=== PATIENT | male | born 1970 | race Caucasian/White ===

== ENCOUNTER 2018-04-14 09:33 | Inpatient (IN) | payer OTHER ==
--- NOTE | 2018-04-14 10:01 | ERPHSYRPT ---
- History of Present Illness Time Seen by Provider: 04/14/18 09:45 Source: patient Exam Limitations: no limitations Physician History: 48 y/o male with no past medical history comes to the ER with complaints of right lower extremity pain, swelling, warmth and redness that started last night. Pt describes the pain as aching, currently 0/10, 10/10 with movement, with radiation up thigh and pt has not taken any pain meds. Pt also admits to mild dyspnea on exertion. Pt arrives tachycardic in the low 100's and fever of 101. Pt has a strong family history of multiple members having DVTs. Pt denies any chest pain, palpitations, dizziness, abdominal pain, nausea or vomiting. Method of Injury: unknown Occurred: yesterday Quality: intermittent Severity of Pain-Max: severe Severity of Pain-Current: none Lower Extremities Pain: leg: right, knee: right, thigh: right Modifying Factors: Improves With: nothing Associated Symptoms: none Allergies/Adverse Reactions: No Known Drug Allergies Allergy (Unverified 04/14/18 10:05) - Review of Systems Constitutional: No Fever, No Chills Eyes: No Symptoms Ears, Nose, & Throat: No Symptoms Respiratory: Dyspnea on Exertion (HERNÁNDEZ), No Cough, No Dyspnea Cardiac: No Chest Pain, No Edema, No Syncope Abdominal/Gastrointestinal: No Abdominal Pain, No Nausea, No Vomiting, No Diarrhea Genitourinary Symptoms: No Dysuria Musculoskeletal: Myalgias, No Back Pain, No Neck Pain Skin: Cellulitis, No Rash Neurological: No Dizziness, No Focal Weakness, No Sensory Changes Psychological: No Symptoms Endocrine: No Symptoms All Other Systems: Reviewed and Negative - Nursing Vital Signs Nursing Vital Signs: Initial Vital Signs Temperature 100.1 F 04/14/18 09:50 Pulse Rate 70 04/14/18 09:50 Respiratory Rate 20 04/14/18 09:50 Blood Pressure 124/48 04/14/18 09:50 O2 Sat by Pulse Oximetry 99 04/14/18 09:50 Pain Scale Pain Intensity [Right Anterior 8 /Posterior Thigh] Pain Intensity 0 - Physical Exam General Appearance: mild distress, alert Eyes, Ears, Nose, Throat Exam: moist mucous membranes Neck Exam: non-tender, supple Cardiovascular/Respiratory Exam: chest non-tender, normal breath sounds, regular rate/rhythm, no respiratory distress, tachycardia Gastrointestinal/Abdominal Exam: non-tender, guarding Back Exam: normal inspection, No vertebral tenderness Hips Exam: bilateral: non-tender, normal inspection, normal range of motion, no evidence of injury Legs Exam: right leg: limited range of motion, pain, soft tissue tenderness, swelling Knees Exam: right knee: pain, soft tissue tenderness, swelling Ankle Exam: bilateral ankle: non-tender, normal inspection, normal range of motion, no evidence of injury Foot Exam: bilateral foot: non-tender, normal inspection, normal range of motion , no evidence of injury Neuro/Tendon Exam: normal sensation, normal motor functions Mental Status Exam: alert, oriented x 3, cooperative Skin Exam: normal color, warm, dry - Course Nursing assessment & vital signs reviewed: Yes Ordered Tests: Active Orders 24 hr Category Date Time Status Scoop Driver STAT Care 04/14/18 10:02 Active EKG-ER Only STAT Care 04/14/18 11:04 Active IV Insertion STAT Care 04/14/18 10:02 Active Oxygen-ED Only NASAL CANNULA 2 lpm Care 04/14/18 11:34 Active CHEST 1 VIEW (PORTABLE) Stat Exams 04/14/18 10:28 Taken VENOUS UNILAT/LIMITED EXTREMIT [US] Stat Exams 04/14/18 11:36 Taken BLOOD CULTURE Stat Lab 04/14/18 10:15 Received CBC W DIFF Stat Lab 04/14/18 10:00 Results CMP Stat Lab 04/14/18 10:00 Completed Lactic Acid Stat Lab 04/14/18 10:02 Results Manual Differential NC Stat Lab 04/14/18 10:00 Results PT INR [PROTIME WITH INR] Stat Lab 04/14/18 10:00 Completed PTT Stat Lab 04/14/18 10:00 Completed Pathologist Review Stat Lab 04/14/18 10:00 Results TROPONIN Q3H Lab 04/14/18 10:00 Completed TROPONIN Q3H Lab 04/14/18 14:15 Ordered TROPONIN Q3H Lab 04/14/18 17:15 Ordered TROPONIN Q3H Lab 04/14/18 20:15 Ordered TROPONIN Q3H Lab 04/14/18 23:15 Ordered UA W/RFX UR CULTURE Stat Lab 04/14/18 10:02 Uncollected Medication Summary Generic Name Dose Route Start Last Admin Trade Name Freq PRN Reason Stop Dose Admin Sodium Chloride 1,000 mls @ 999 mls/hr 04/14/18 11:15 04/14/18 11:27 Sodium Chloride 0.9% 1000 Ml IV 04/14/18 12:15 999 mls/hr .Q1H1M STA Administration Discontinued Medications Generic Name Dose Route Start Last Admin Trade Name Sebas PRN Reason Stop Dose Admin Acetaminophen 975 mg 04/14/18 10:02 04/14/18 10:14 Tylenol 325 Mg PO 04/14/18 10:03 975 mg STAT STA Administration Acetaminophen Confirm 04/14/18 10:08 Tylenol 325 Mg Administered 04/14/18 10:09 Dose 975 mg .ROUTE .STK-MED ONE Sodium Chloride 1,000 mls @ 999 mls/hr 04/14/18 10:02 04/14/18 11:25 Sodium Chloride 0.9% 1000 Ml IV 04/14/18 11:02 Infused .Q1H1M STA Infusion Vancomycin HCl 1 gm in 250 mls @ 167 mls/hr 04/14/18 10:08 04/14/18 10:30 Vancomycin 1gm/ Ns 250ml IV 04/14/18 11:37 167 mls/hr STAT ONE Administration Sodium Chloride Confirm 04/14/18 10:09 Sodium Chloride 0.9% 1000 Ml Administered 04/14/18 10:10 Dose 1,000 mls @ ud .ROUTE .STK-MED ONE Vancomycin HCl Confirm 04/14/18 10:26 Vancomycin 1gm/ Ns 250ml Administered 04/14/18 10:27 Dose 250 mls @ ud IV .STK-MED ONE Sodium Chloride Confirm 04/14/18 11:19 Sodium Chloride 0.9% 1000 Ml Administered 04/14/18 11:20 Dose 1,000 mls @ ud .ROUTE .STK-MED ONE Morphine Sulfate 4 mg 04/14/18 10:04 04/14/18 10:13 Morphine Sulfate 4 Mg Inj IV 04/14/18 10:05 4 mg STAT ONE Administration Morphine Sulfate Confirm 04/14/18 10:08 Morphine Sulfate 4 Mg Inj Administered 04/14/18 10:09 Dose 4 mg .ROUTE .STK-MED ONE Ondansetron HCl 4 mg 04/14/18 10:02 04/14/18 10:15 Zofran 4 Mg/2 Ml Vial IV 04/14/18 10:03 4 mg STAT STA Administration Ondansetron HCl Confirm 04/14/18 10:08 Zofran 4 Mg/2 Ml Vial Administered 04/14/18 10:09 Dose 4 mg .ROUTE .STK-MED ONE Lab/Rad Data: Laboratory Result Diagrams 04/14/18 10:00 04/14/18 10:00 Laboratory Results 04/14/18 04/14/18 04/14/18 Range/Units 10:02 10:00 10:00 WBC (4.0-10.5) K/mm3 RBC (4.1-5.6) M/mm3 Hgb (12.5-18.0) gm/dl Hct (42-50) % MCV (78-100) fl MCH (26-32) pg MCHC (32-36) g/dl RDW (11.5-14.0) % Plt Count (150-450) K/mm3 MPV (6-9.5) fl Absolute Granulocytes (1.4-6.9) Segmented Neutrophils (36.-66.) % Band Neutrophils (0.0-2.0) % Lymphocytes (Manual) (24-44) % Monocytes (Manual) (0.0-12.0) % Toxic Granulation Platelet Estimate (NORMAL) RBC Morphology Smear Path Review PT 14.3 H (8.83-12.87) SECONDS INR 1.23 (0.8-3.0) APTT 28.9 (24.1-36.1) SECONDS Sodium (137-145) mmol/L Potassium (3.5-5.1) mmol/L Chloride (98-107) mmol/L Carbon Dioxide (22-30) mmol/L Anion Gap (5-15) MEQ/L BUN (9-20) mg/dL Creatinine (0.66-1.25) mg/dL Estimated GFR ML/MIN Glucose (74-106) mg/dL Lactic Acid 3.0 H (0.4-2.0) Calcium (8.4-10.2) mg/dL Total Bilirubin (0.2-1.3) mg/dL AST (17-59) U/L ALT (0-50) U/L Alkaline Phosphatase (38-126) U/L Troponin I < 0.012 (0.000-0.034) ng/mL Serum Total Protein (6.3-8.2) g/dL Albumin (3.5-5.0) g/dL 04/14/18 04/14/18 Range/Units 10:00 10:00 WBC 27.2 H* (4.0-10.5) K/mm3 RBC 5.64 H (4.1-5.6) M/mm3 Hgb 15.6 (12.5-18.0) gm/dl Hct 48.4 (42-50) % MCV 85.8 (78-100) fl MCH 27.6 (26-32) pg MCHC 32.2 (32-36) g/dl RDW 14.6 H (11.5-14.0) % Plt Count 314 (150-450) K/mm3 MPV 9.6 H (6-9.5) fl Absolute Granulocytes 24.72 H (1.4-6.9) Segmented Neutrophils 89 H (36.-66.) % Band Neutrophils 4 H (0.0-2.0) % Lymphocytes (Manual) 4 L (24-44) % Monocytes (Manual) 3 (0.0-12.0) % Toxic Granulation 2+ Platelet Estimate NORMAL (NORMAL) RBC Morphology NORMAL Smear Path Review Pending PT (8.83-12.87) SECONDS INR (0.8-3.0) APTT (24.1-36.1) SECONDS Sodium 135 L (137-145) mmol/L Potassium 3.7 (3.5-5.1) mmol/L Chloride 100 (98-107) mmol/L Carbon Dioxide 27 (22-30) mmol/L Anion Gap 12.0 (5-15) MEQ/L BUN 14 (9-20) mg/dL Creatinine 1.01 (0.66-1.25) mg/dL Estimated GFR > 60.0 ML/MIN Glucose 140 H (74-106) mg/dL Lactic Acid (0.4-2.0) Calcium 8.5 (8.4-10.2) mg/dL Total Bilirubin 1.90 H (0.2-1.3) mg/dL AST 20 (17-59) U/L ALT 28 (0-50) U/L Alkaline Phosphatase 88 (38-126) U/L Troponin I (0.000-0.034) ng/mL Serum Total Protein 7.5 (6.3-8.2) g/dL Albumin 3.8 (3.5-5.0) g/dL - Progress Progress: improved Progress Note: 04/14/18 11:16 The patient has clinical features of a cellulitis and was started on vancomycin. Pt has a white count of 27,000. The doppler LE does not show a DVT. Pt has a lactic acid of 3.0 and will be given 2 liters of NS fluids. The CXR does not show any infiltrate and the UA is pending. Pt has been admitted to Dr Amezquita for cellulitis. 04/14/18 11:19 - Departure Time of Disposition: 12:01 Departure Disposition: In-patient Admission Clinical Impression: Cellulitis Qualifiers: Site of cellulitis: extremity Site of cellulitis of extremity: lower extremity Laterality: right Qualified Code(s): L03.115 - Cellulitis of right lower limb Condition: Fair Critical Care Time: Yes Critical Care Time(excluding separately billable procedures): 30-74 minutes Referrals: DOCTOR,NO FAMILY [Primary Care Provider] -
[2018-04-14] MEDS ORDERED: Zofran 4 MG/2 ML VIAL IV STA (10:02)
[2018-04-14] MEDS ORDERED: Sodium Chloride 0.9% 1000 ML 1,000 ML IV STA ×2 (10:02→11:15)
[2018-04-14] MEDS ORDERED: TYLENOL 325 MG PO STA (10:02)
[2018-04-14] MEDS ORDERED: MORPHINE SULFATE 4 MG INJ IV ONE (10:04)
[2018-04-14] MEDS ORDERED: Vancomycin 1GM/ Ns 250ML*** 1 GM/250 ML IVPB IV ONE (10:08)
[2018-04-14] MEDS ORDERED: MORPHINE SULFATE 4 MG INJ ONE (10:08)
[2018-04-14] MEDS ORDERED: Zofran 4 MG/2 ML VIAL ONE (10:08)
[2018-04-14] MEDS ORDERED: TYLENOL 325 MG ONE (10:08)
[2018-04-14] MEDS ORDERED: Sodium Chloride 0.9% 1000 ML 1,000 ML ONE ×2 (10:09→11:19)
[2018-04-14 10:11] LABS: Granulocyte Absolute (ANC) 24.72 (1.4-6.9); Hematocrit 48.4 % (42-50); Hemoglobin 15.6 gm/dl (12.5-18.0); Mean Cell Volume 85.8 fl (78-100); Mean Corpuscular Hgb Concent. 32.2 g/dl (32-36); Mean Platelet Volume 9.6 fl (6-9.5); Platelet Count 314 K/mm3 (150-450); Red Blood Count 5.64 M/mm3 (4.1-5.6); Red Cell Distribution Width 14.6 % (11.5-14.0)
[2018-04-14 10:17] LABS: Mean Corpuscular Hemoglobin 27.6 pg (26-32); White Blood Count 27.2 K/mm3 (4.0-10.5)
[2018-04-14] MEDS ORDERED: Vancomycin 1GM/ Ns 250ML*** 250 ML IV ONE (10:26)
[2018-04-14 10:29] LABS: ALBUMIN 3.8 g/dL (3.5-5.0); ALKALINE PHOSPHATASE 88 U/L (38-126); BLOOD UREA NITROGEN 14 mg/dL (9-20); CHLORIDE 100 mmol/L (98-107); Calcium 8.5 mg/dL (8.4-10.2); Carbon Dioxide 27 mmol/L (22-30); Creatinine 1 1.01 mg/dL (0.66-1.25); Glucose 140 mg/dL (74-106); Potassium 3.7 mmol/L (3.5-5.1); SGOT/AST 20 U/L (17-59); SGPT/ALT 28 U/L (0-50); SODIUM 135 mmol/L (137-145); Total Protein 7.5 g/dL (6.3-8.2)
[2018-04-14 10:54] LABS: INR 1.23 (0.8-3.0)
[2018-04-14 10:57] LABS: PTT 28.9 SECONDS (24.1-36.1)
[2018-04-14 11:56] LABS: BAND 4 % (0.0-2.0); Lymphocytes 4 % (24-44); Monocyte 3 % (0.0-12.0); Neutrophils 89 % (36.-66.); Platelet Estimate NORMAL (NORMAL); Total Cells Counted 100; Toxic Granulation 2+
[2018-04-14] MEDS: Sodium Chloride 0.9% 1000 ML 1,000 ML IV SCH (13:13)
[2018-04-14] MEDS ORDERED: VANCOCIN 1 GM VIAL*** 1.5 GM in Sodium Chloride 0.9% 500 ML 500 ML IV ONE (13:15)
[2018-04-14] MEDS: ENOXAPARIN SODIUM SQ SCH (16:15)
[2018-04-14 16:51] LABS: Appearance CLEAR (CLEAR); Bilirubin NEGATIVE (NEGATIVE); Blood NEGATIVE Ery/ul (0-5); Glucose NEGATIVE (NEGATIVE); Ketones NEGATIVE (NEGATIVE); Leukocyte Esterase NEGATIVE (NEGATIVE); Nitrite NEGATIVE (NEGATIVE); Protein,Urine Dip NEGATIVE (Negative); Urobilinogen NORMAL mg/dL (0-1)
[2018-04-14] MEDS: TYLENOL 325 MG PO PRN (16:54)
--- NOTE | 2018-04-14 20:44 | XRAY ---
Indication: Right leg pain and swelling. Two-dimensional sonogram and color Doppler imaging of the major venous vessels of the right leg was performed. Comparison: None No thrombus seen in the examined deep venous vessels of the right leg including greater saphenous vein. Veins demonstrate normal compressibility. Venous waveforms are normal with and without augmentation. Impression: Right leg negative for DVT. Comment: Preliminary report was given.
--- NOTE | 2018-04-14 20:46 | XRAY ---
Indication: Lower leg pain and swelling. Comparison: None Portable chest demonstrates normal heart, lungs, and bony thorax.
[2018-04-14] MEDS: VANCOCIN 1 GM VIAL*** 2 GM in Sodium Chloride 0.9% 500 ML 500 ML IV SCH (21:00)
[2018-04-15] MEDS: MORPHINE SULFATE 4 MG INJ IV PRN ×3 (03:26→20:08)
[2018-04-15 05:35] LABS: BASOPHIL % 0.2 % (0.0-0.4); Basophil (Absolute #) 0.03 (0-0.4); Eosinophil % 0.1 % (0.00-5.0); Eosinophil (Absolute #) 0.02 (0-0.5); Granulocyte Absolute (ANC) 15.66 (1.4-6.9); Granulocytes % 82.3 % (36.0-66.0); Hemoglobin 14.2 gm/dl (12.5-18.0); Lymphocyte (Absolute #) 2.01 (1.0-4.6); Lymphocytes % 10.6 % (24.0-44.0); Mean Cell Volume 88.2 fl (78-100); Mean Corpuscular Hemoglobin 27.8 pg (26-32); Mean Corpuscular Hgb Concent. 31.6 g/dl (32-36); Mean Platelet Volume 9.7 fl (6-9.5); Monocyte (Absolute #) 1.29 (0.0-1.3); Monocytes % 6.8 % (0.0-12.0); Platelet Count 252 K/mm3 (150-450)
[2018-04-15 05:51] LABS: ANION GAP 10.1 MEQ/L (5-15); BLOOD UREA NITROGEN 13 mg/dL (9-20); CHLORIDE 99 mmol/L (98-107); Carbon Dioxide 28 mmol/L (22-30); Creatinine 1 1.16 mg/dL (0.66-1.25); Glucose 144 mg/dL (74-106); Potassium 3.9 mmol/L (3.5-5.1); SODIUM 134 mmol/L (137-145)
[2018-04-15] MEDS: VANCOCIN 1 GM VIAL*** 2 GM in Sodium Chloride 0.9% 500 ML 500 ML IV SCH ×3 (06:16→22:16)
[2018-04-15] MEDS: Sodium Chloride 0.9% 1000 ML 1,000 ML IV SCH (06:19)
[2018-04-15] MEDS: ENOXAPARIN SODIUM SQ SCH (09:12)
[2018-04-15] MEDS: TYLENOL 325 MG PO PRN (09:20)
[2018-04-15] MEDS ORDERED: Vancomycin 1GM/ Ns 250ML*** 1 GM/250 ML IVPB IV SCH (10:00)
[2018-04-15] MEDS: Zofran 4 MG/2 ML VIAL IV PRN ×2 (11:38→20:07)
--- NOTE | 2018-04-15 13:10 | PCM.HP ---
History of Present Illness - Chief Complaint Chief Complaint: swelling and redness of leg History of Present Illness: 48 y/o male with no past medical history comes to the ER with complaints of right lower extremity pain, swelling, warmth and redness that started last night. Pt describes the pain as aching, currently 0/10, 10/10 with movement, with radiation up thigh and pt has not taken any pain meds. Pt also admits to mild dyspnea on exertion. Pt arrives tachycardic in the low 100's and fever of 101. Pt has a strong family history of multiple members having DVTs. Pt denies any chest pain, palpitations, dizziness, abdominal pain, nausea or vomiting. Method of Injury: unknown Occurred: yesterday Quality: intermittent Severity of Pain-Max: severe Severity of Pain-Current: none Lower Extremities Pain: leg: right, knee: right, thigh: right Modifying Factors: Improves With: nothing - Review of Systems Constitutional: No Fever, No Chills Eyes: No Symptoms Ears, Nose, & Throat: No Symptoms Respiratory: No Cough, No Short Of Breath Cardiac: No Chest Pain, No Edema, No Syncope Abdominal/Gastrointestinal: No Abdominal Pain, No Nausea, No Vomiting, No Diarrhea Genitourinary Symptoms: No Dysuria Musculoskeletal: No Back Pain, No Neck Pain Skin: Cellulitis, No Rash Neurological: No Dizziness, No Focal Weakness, No Sensory Changes Psychological: No Symptoms Endocrine: No Symptoms Hematologic/Lymphatic: No Symptoms Immunological/Allergic: No Symptoms Medications & Allergies Home Medications: Home Medication List No Reportable Medications [No Reported Medications] 04/14/18 [History Confirmed 04/14/18] Allergies/Adverse Reactions: Allergies Allergy/AdvReac Type Severity Reaction Status Date / Time No Known Drug Allergies Allergy Unverified 04/14/18 10:05 - Past Medical History Past Medical History: No - Past Surgical History Past Surgical History: Yes Musculskeletal Surgical Hx: Orthopedic Surgery Other Surgical History: BROKEN HAND - Social History Smoking Status: Never smoker Exposure to second hand smoke: No Alcohol: None Drug Use: none - Physical Exam Vital Signs: Vital Signs - 24 hr Temp Pulse Resp BP Pulse Ox 04/15/18 11:43 97 H 18 175/96 98 04/15/18 07:13 98.5 F 97 H 18 115/53 92 L 04/15/18 03:48 99.5 F 98 H 19 130/60 97 08/26/18 23:31 98.4 F 89 19 129/65 90 L 04/14/18 19:37 100.8 F 100 H 20 115/55 94 L 04/14/18 15:49 98.2 F 96 H 18 166/71 92 L General Appearance: no apparent distress, alert Neurologic Exam: alert, oriented x 3, cooperative, normal mood/affect, nml cerebellar function, nml station & gait, sensation nml, No motor deficits Eye Exam: PERRL/EOMI, eyes nml inspection Ears, Nose, Throat Exam: normal ENT inspection, TMs normal, pharynx normal, moist mucous membranes Neck Exam: normal inspection, non-tender, supple, full range of motion Respiratory Exam: normal breath sounds, lungs clear, No respiratory distress Cardiovascular Exam: regular rate/rhythm, normal heart sounds, normal peripheral pulses Gastrointestinal/Abdomen Exam: soft, normal bowel sounds, No tenderness, No mass Back Exam: normal inspection, normal range of motion, No CVA tenderness, No vertebral tenderness Extremity Exam: normal inspection, swelling Skin Exam: normal color, warm, dry, No rash Lymphatic Exam: No adenopathy Results - Labs Lab/Micro Results: Lab Results-Last 24 Hours 04/14/18 04/14/18 04/14/18 Range/Units 14:00 14:13 16:43 WBC (4.0-10.5) K/mm3 RBC (4.1-5.6) M/mm3 Hgb (12.5-18.0) gm/dl Hct (42-50) % MCV (78-100) fl MCH (26-32) pg MCHC (32-36) g/dl RDW (11.5-14.0) % Plt Count (150-450) K/mm3 MPV (6-9.5) fl Gran % (36.0-66.0) % Eos # (Auto) (0-0.5) Absolute Lymphs (auto) (1.0-4.6) Absolute Monos (auto) (0.0-1.3) Lymphocytes % (24.0-44.0) % Monocytes % (0.0-12.0) % Eosinophils % (0.00-5.0) % Basophils % (0.0-0.4) % Absolute Granulocytes (1.4-6.9) Basophils # (0-0.4) Sodium (137-145) mmol/L Potassium (3.5-5.1) mmol/L Chloride (98-107) mmol/L Carbon Dioxide (22-30) mmol/L Anion Gap (5-15) MEQ/L BUN (9-20) mg/dL Creatinine (0.66-1.25) mg/dL Estimated GFR ML/MIN Glucose (74-106) mg/dL Lactic Acid 1.5 (0.4-2.0) Calcium (8.4-10.2) mg/dL Troponin I < 0.012 (0.000-0.034) ng/mL Ur Collection Type VOID Urine Color DARK YELLOW (YELLOW) Urine Appearance CLEAR (CLEAR) Urine pH 5.0 (5-6) Ur Specific [place] 1.020 (1.005-1.025) Urine Protein NEGATIVE (Negative) Urine Ketones NEGATIVE (NEGATIVE) Urine Blood NEGATIVE (0-5) Guido/ul Urine Nitrite NEGATIVE (NEGATIVE) Urine Bilirubin NEGATIVE (NEGATIVE) Urine Urobilinogen NORMAL (0-1) mg/dL Ur Leukocyte Esterase NEGATIVE (NEGATIVE) Urine Culture Reflexed NO (NO) Urine Glucose NEGATIVE (NEGATIVE) mg/dL Specimen Received 04/14/18 1630 04/14/18 04/15/18 04/15/18 Range/Units 17:45 05:15 05:31 WBC 19.0 H (4.0-10.5) K/mm3 RBC 5.10 (4.1-5.6) M/mm3 Hgb 14.2 (12.5-18.0) gm/dl Hct 45.0 (42-50) % MCV 88.2 (78-100) fl MCH 27.8 (26-32) pg MCHC 31.6 L (32-36) g/dl RDW 15.0 H (11.5-14.0) % Plt Count 252 (150-450) K/mm3 MPV 9.7 H (6-9.5) fl Gran % 82.3 H (36.0-66.0) % Eos # (Auto) 0.02 (0-0.5) Absolute Lymphs (auto) 2.01 (1.0-4.6) Absolute Monos (auto) 1.29 (0.0-1.3) Lymphocytes % 10.6 L (24.0-44.0) % Monocytes % 6.8 (0.0-12.0) % Eosinophils % 0.1 (0.00-5.0) % Basophils % 0.2 (0.0-0.4) % Absolute Granulocytes 15.66 H (1.4-6.9) Basophils # 0.03 (0-0.4) Sodium (137-145) mmol/L Potassium (3.5-5.1) mmol/L Chloride (98-107) mmol/L Carbon Dioxide (22-30) mmol/L Anion Gap (5-15) MEQ/L BUN (9-20) mg/dL Creatinine (0.66-1.25) mg/dL Estimated GFR ML/MIN Glucose (74-106) mg/dL Lactic Acid 1.2 (0.4-2.0) Calcium (8.4-10.2) mg/dL Troponin I < 0.012 (0.000-0.034) ng/mL Ur Collection Type Urine Color (YELLOW) Urine Appearance (CLEAR) Urine pH (5-6) Ur Specific [place] (1.005-1.025) Urine Protein (Negative) Urine Ketones (NEGATIVE) Urine Blood (0-5) Guido/ul Urine Nitrite (NEGATIVE) Urine Bilirubin (NEGATIVE) Urine Urobilinogen (0-1) mg/dL Ur Leukocyte Esterase (NEGATIVE) Urine Culture Reflexed (NO) Urine Glucose (NEGATIVE) mg/dL Specimen Received 04/15/18 Range/Units 05:31 WBC (4.0-10.5) K/mm3 RBC (4.1-5.6) M/mm3 Hgb (12.5-18.0) gm/dl Hct (42-50) % MCV (78-100) fl MCH (26-32) pg MCHC (32-36) g/dl RDW (11.5-14.0) % Plt Count (150-450) K/mm3 MPV (6-9.5) fl Gran % (36.0-66.0) % Eos # (Auto) (0-0.5) Absolute Lymphs (auto) (1.0-4.6) Absolute Monos (auto) (0.0-1.3) Lymphocytes % (24.0-44.0) % Monocytes % (0.0-12.0) % Eosinophils % (0.00-5.0) % Basophils % (0.0-0.4) % Absolute Granulocytes (1.4-6.9) Basophils # (0-0.4) Sodium 134 L (137-145) mmol/L Potassium 3.9 (3.5-5.1) mmol/L Chloride 99 (98-107) mmol/L Carbon Dioxide 28 (22-30) mmol/L Anion Gap 10.1 (5-15) MEQ/L BUN 13 (9-20) mg/dL Creatinine 1.16 (0.66-1.25) mg/dL Estimated GFR > 60.0 ML/MIN Glucose 144 H (74-106) mg/dL Lactic Acid (0.4-2.0) Calcium 8.0 L (8.4-10.2) mg/dL Troponin I (0.000-0.034) ng/mL Ur Collection Type Urine Color (YELLOW) Urine Appearance (CLEAR) Urine pH (5-6) Ur Specific [place] (1.005-1.025) Urine Protein (Negative) Urine Ketones (NEGATIVE) Urine Blood (0-5) Guido/ul Urine Nitrite (NEGATIVE) Urine Bilirubin (NEGATIVE) Urine Urobilinogen (0-1) mg/dL Ur Leukocyte Esterase (NEGATIVE) Urine Culture Reflexed (NO) Urine Glucose (NEGATIVE) mg/dL Specimen Received - Radiology Impressions Radiology Exams & Impressions: Radiology Procedures Category Date Time Status CHEST 1 VIEW (PORTABLE) Stat Exams 04/14/18 10:28 Completed VENOUS UNILAT/LIMITED EXTREMIT [US] Stat Exams 04/14/18 11:36 Completed Assessment/Plan (1) Cellulitis Current Visit: Yes Status: Acute Onset Date: ~04/14/18 Qualifiers: Site of cellulitis: extremity Site of cellulitis of extremity: lower extremity Laterality: right Qualified Code(s): L03.115 - Cellulitis of right lower limb Code(s): L03.90 - CELLULITIS, UNSPECIFIED (2) Elevated WBC count Current Visit: Yes Status: Acute Onset Date: ~04/14/18 Code(s): D72.829 - ELEVATED WHITE BLOOD CELL COUNT, UNSPECIFIED (3) Fever Current Visit: Yes Status: Acute Onset Date: ~04/14/18 Qualifiers: Fever type: unspecified Qualified Code(s): R50.9 - Fever, unspecified Code(s): R50.9 - FEVER, UNSPECIFIED (4) Morbidly obese Current Visit: Yes Status: Acute Onset Date: ~04/14/18 Code(s): E66.01 - MORBID (SEVERE) OBESITY DUE TO EXCESS CALORIES
[2018-04-15] MEDS ORDERED: TROUGH DRUG LEVELS IJ ONE (13:30)
--- NOTE | 2018-04-15 14:33 | XRAY ---
Indication: Cellulitis. Two-dimensional sonogram and color Doppler imaging of the major arteries of the left and right leg performed. Comparison: None Examination of the right leg demonstrates patent common femoral, superficial femoral, popliteal, posterior tibial, and dorsal pedal arteries with monophasic arterial waveforms throughout. Lower leg demonstrates mild subcutaneous soft tissue edema. Examination of the left leg demonstrates widely patent common femoral, superficial femoral, popliteal, posterior tibial, and dorsal pedal arteries with multiphasic arterial waveforms throughout. Lower leg demonstrates moderate subcutaneous soft tissue edema. Left and right ankle brachial indices not performed due to severe cellulitis. Impression: 1. Left and right leg arterial color Doppler sonogram negative for critical stenosis/obstruction. 2. The right leg arterial waveforms are monophasic throughout suggesting inflow stenosis presumed at the level of the iliac arteries. CTA abdominal aorta with bilateral runoff may yield further information if clinically warranted. 3. Bilateral lower leg subcutaneous soft tissue edema, left greater than right presumed related to cellulitis.
[2018-04-16] MEDS: MORPHINE SULFATE 4 MG INJ IV PRN (01:27)
[2018-04-16] MEDS: Sodium Chloride 0.9% 1000 ML 1,000 ML IV SCH (04:42)
[2018-04-16] MEDS: TYLENOL 325 MG PO PRN ×2 (04:49→22:23)
[2018-04-16 05:43] LABS: Hematocrit 41.5 % (42-50); Mean Cell Volume 88.9 fl (78-100); Mean Corpuscular Hemoglobin 27.8 pg (26-32); Mean Corpuscular Hgb Concent. 31.3 g/dl (32-36); Mean Platelet Volume 9.4 fl (6-9.5); Platelet Count 215 K/mm3 (150-450); Red Blood Count 4.67 M/mm3 (4.1-5.6); Red Cell Distribution Width 14.5 % (11.5-14.0); White Blood Count 12.7 K/mm3 (4.0-10.5)
[2018-04-16 06:07] LABS: ALKALINE PHOSPHATASE 81 U/L (38-126); ANION GAP 7.5 MEQ/L (5-15); BLOOD UREA NITROGEN 10 mg/dL (9-20); CHLORIDE 98 mmol/L (98-107); Calcium 7.6 mg/dL (8.4-10.2); Carbon Dioxide 30 mmol/L (22-30); Creatinine 1 0.92 mg/dL (0.66-1.25); Glucose 158 mg/dL (74-106); Potassium 3.7 mmol/L (3.5-5.1); SGOT/AST 21 U/L (17-59); SGPT/ALT 24 U/L (0-50); SODIUM 132 mmol/L (137-145); Total Protein 6.2 g/dL (6.3-8.2)
[2018-04-16] MEDS: VANCOCIN 1 GM VIAL*** 2 GM in Sodium Chloride 0.9% 500 ML 500 ML IV SCH ×3 (06:31→22:23)
[2018-04-16] MEDS: Zestril 5 MG PO SCH (10:04)
[2018-04-16] MEDS: ENOXAPARIN SODIUM SQ SCH (10:05)
[2018-04-16] MEDS: Lasix 40 MG PO SCH (10:05)
[2018-04-16] MEDS: hydroDIURIL 25 MG PO SCH (10:05)
--- NOTE | 2018-04-16 11:52 | PCM.NOTE ---
Date and Time: 04/16/18 1151 Subjective Assessment: doing better - Review of Systems Constitutional: No Fever, No Chills Eyes: No Symptoms Ears, Nose, & Throat: No Symptoms Respiratory: No Cough, No Short Of Breath Cardiac: No Chest Pain, No Edema, No Syncope Abdominal/Gastrointestinal: No Abdominal Pain, No Nausea, No Vomiting, No Diarrhea Genitourinary Symptoms: No Dysuria Musculoskeletal: No Back Pain, No Neck Pain Skin: No Rash Neurological: No Dizziness, No Focal Weakness, No Sensory Changes Psychological: No Symptoms Endocrine: No Symptoms Hematologic/Lymphatic: No Symptoms Immunological/Allergic: No Symptoms Objective Exam General Appearance: no apparent distress, alert Neurologic Exam: alert, oriented x 3, cooperative, normal mood/affect, nml cerebellar function, sensation nml, No motor deficits Skin Exam: normal color, warm, dry Eye Exam: PERRL, EOMI, eyes nml inspection Ears, Nose, Throat Exam: normal ENT inspection, pharynx normal, moist mucous membranes Neck Exam: normal inspection, non-tender, supple, full range of motion Respiratory Exam: normal breath sounds, lungs clear, No respiratory distress Cardiovascular Exam: regular rate/rhythm, normal heart sounds Gastrointestinal/Abdomen Exam: soft, No tenderness, No mass Extremity Exam: normal inspection, normal range of motion, swelling, tenderness Back Exam: normal inspection, normal range of motion, No CVA tenderness, No vertebral tenderness Male Genitalia Exam: deferred Rectal Exam: deferred OBJECTIVE DATA Vital Signs: Vital Signs - 24 hr Temp Pulse Resp BP Pulse Ox 04/16/18 11:48 97.9 F 66 18 135/58 94 L 04/16/18 08:00 98.2 F 74 21 121/62 92 L 04/16/18 07:11 96 04/16/18 04:00 98.4 F 92 H 22 150/65 92 L 04/15/18 23:50 98.3 F 93 H 22 136/60 92 L 04/15/18 20:00 99.3 F 90 20 128/59 95 04/15/18 15:49 98.1 F 75 18 162/70 97 Oxygen-Last 24 hours O2 Percentage 4 Liters = 36% O2 Percentage 4 Liters = 36% Pain Assessment - Last Documented Pain Intensity [Right Anterior 8 /Posterior Thigh] Pain Intensity 5 Pain Scale Used FLACC Intake and Output: Intake & Output 04/13/18 04/14/18 04/15/18 04/16/18 11:59 11:59 11:59 11:59 Intake Total 6294 1560 Output Total 800 Balance 5474 1560 Weight 172.365 kg 144.3 kg Lab Results: Lab Results-Last 24 Hours 04/15/18 04/15/18 04/16/18 Range/Units 04:00 13:36 05:00 WBC (4.0-10.5) K/mm3 RBC (4.1-5.6) M/mm3 Hgb (12.5-18.0) gm/dl Hct (42-50) % MCV (78-100) fl MCH (26-32) pg MCHC (32-36) g/dl RDW (11.5-14.0) % Plt Count (150-450) K/mm3 MPV (6-9.5) fl Sodium (137-145) mmol/L Potassium (3.5-5.1) mmol/L Chloride (98-107) mmol/L Carbon Dioxide (22-30) mmol/L Anion Gap (5-15) MEQ/L BUN (9-20) mg/dL Creatinine (0.66-1.25) mg/dL Estimated GFR ML/MIN Glucose (74-106) mg/dL Hemoglobin A1c 5.88 (4.5-6.0) % Calcium (8.4-10.2) mg/dL Total Bilirubin (0.2-1.3) mg/dL AST (17-59) U/L ALT (0-50) U/L Alkaline Phosphatase (38-126) U/L NT-Pro-B Natriuret Pep 1150 H (0-450) pg/mL Serum Total Protein (6.3-8.2) g/dL Albumin (3.5-5.0) g/dL Vancomycin Trough 13.24 (10-20) ug/mL 04/16/18 04/16/18 Range/Units 05:35 05:35 WBC 12.7 H (4.0-10.5) K/mm3 RBC 4.67 (4.1-5.6) M/mm3 Hgb 13.0 (12.5-18.0) gm/dl Hct 41.5 L (42-50) % MCV 88.9 (78-100) fl MCH 27.8 (26-32) pg MCHC 31.3 L (32-36) g/dl RDW 14.5 H (11.5-14.0) % Plt Count 215 (150-450) K/mm3 MPV 9.4 (6-9.5) fl Sodium 132 L (137-145) mmol/L Potassium 3.7 (3.5-5.1) mmol/L Chloride 98 (98-107) mmol/L Carbon Dioxide 30 (22-30) mmol/L Anion Gap 7.5 (5-15) MEQ/L BUN 10 (9-20) mg/dL Creatinine 0.92 (0.66-1.25) mg/dL Estimated GFR > 60.0 ML/MIN Glucose 158 H (74-106) mg/dL Hemoglobin A1c (4.5-6.0) % Calcium 7.6 L (8.4-10.2) mg/dL Total Bilirubin 1.00 (0.2-1.3) mg/dL AST 21 (17-59) U/L ALT 24 (0-50) U/L Alkaline Phosphatase 81 (38-126) U/L NT-Pro-B Natriuret Pep (0-450) pg/mL Serum Total Protein 6.2 L (6.3-8.2) g/dL Albumin 3.0 L (3.5-5.0) g/dL Vancomycin Trough (10-20) ug/mL Radiology Exams: Radiology Procedures Category Date Time Status ARTERIAL BILAT LOWER EXTREMITY [US] Urgent Exams 04/15/18 14:16 Completed ECHO W/2D AND DOPPLER [US] Routine Exams 04/16/18 10:44 Taken VENOUS UNILAT/LIMITED EXTREMIT [US] Stat Exams 04/14/18 11:36 Completed Assessment/Plan (1) Cellulitis Current Visit: Yes Status: Acute Onset Date: ~04/14/18 Qualifiers: Site of cellulitis: extremity Site of cellulitis of extremity: lower extremity Laterality: right Qualified Code(s): L03.115 - Cellulitis of right lower limb Code(s): L03.90 - CELLULITIS, UNSPECIFIED (2) Elevated WBC count Current Visit: Yes Status: Acute Onset Date: ~04/14/18 Code(s): D72.829 - ELEVATED WHITE BLOOD CELL COUNT, UNSPECIFIED (3) Fever Current Visit: Yes Status: Acute Onset Date: ~04/14/18 Qualifiers: Fever type: unspecified Qualified Code(s): R50.9 - Fever, unspecified Code(s): R50.9 - FEVER, UNSPECIFIED (4) Morbidly obese Current Visit: Yes Status: Acute Onset Date: ~04/14/18 Code(s): E66.01 - MORBID (SEVERE) OBESITY DUE TO EXCESS CALORIES
[2018-04-16] MEDS: Sodium Chloride 0.9% 10 ML FLUSH Syringe IV SCH ×2 (15:40→22:25)
[2018-04-17] MEDS: MORPHINE SULFATE 4 MG INJ IV PRN ×2 (05:46→12:20)
[2018-04-17] MEDS: Zofran 4 MG/2 ML VIAL IV PRN (05:47)
[2018-04-17] MEDS: VANCOCIN 1 GM VIAL*** 2 GM in Sodium Chloride 0.9% 500 ML 500 ML IV SCH ×3 (06:37→21:22)
[2018-04-17] MEDS: Sodium Chloride 0.9% 10 ML FLUSH Syringe IV SCH ×3 (06:40→21:23)
[2018-04-17] MEDS: hydroDIURIL 25 MG PO SCH (08:48)
[2018-04-17] MEDS: ENOXAPARIN SODIUM SQ SCH (08:48)
[2018-04-17] MEDS: Lasix 40 MG PO SCH (08:49)
[2018-04-17] MEDS: Zestril 5 MG PO SCH (08:49)
[2018-04-17] MEDS ORDERED: PHARMACY DOSING REQUEST MC ONE (09:17)
[2018-04-17] MEDS ORDERED: Zosyn 3.375GM/100 Ml D5W 3.375 GM/100 ML IVPB IV SCH (10:00)
--- NOTE | 2018-04-17 11:25 | PCM.NOTE ---
Date and Time: 04/17/18 1124 Subjective Assessment: last 24 hours events noted - Review of Systems Constitutional: No Fever, No Chills Eyes: No Symptoms Ears, Nose, & Throat: No Symptoms Respiratory: No Cough, No Short Of Breath Cardiac: No Chest Pain, No Edema, No Syncope Abdominal/Gastrointestinal: No Abdominal Pain, No Nausea, No Vomiting, No Diarrhea Genitourinary Symptoms: No Dysuria Musculoskeletal: No Back Pain, No Neck Pain Skin: Cellulitis, No Rash Neurological: No Dizziness, No Focal Weakness, No Sensory Changes Psychological: No Symptoms Endocrine: No Symptoms Hematologic/Lymphatic: No Symptoms Immunological/Allergic: No Symptoms Objective Exam General Appearance: no apparent distress, alert Neurologic Exam: alert, oriented x 3, cooperative, normal mood/affect, nml cerebellar function, sensation nml, No motor deficits Skin Exam: normal color, warm, dry Eye Exam: PERRL, EOMI, eyes nml inspection Ears, Nose, Throat Exam: normal ENT inspection, pharynx normal, moist mucous membranes Neck Exam: normal inspection, non-tender, supple, full range of motion Respiratory Exam: normal breath sounds, lungs clear, No respiratory distress Cardiovascular Exam: regular rate/rhythm, normal heart sounds Gastrointestinal/Abdomen Exam: soft, No tenderness, No mass Extremity Exam: normal inspection, normal range of motion, inflammation, swelling Back Exam: normal inspection, normal range of motion, No CVA tenderness, No vertebral tenderness Male Genitalia Exam: deferred Rectal Exam: deferred OBJECTIVE DATA Vital Signs: Vital Signs - 24 hr Temp Pulse Resp BP Pulse Ox 04/17/18 08:00 75 04/17/18 07:58 98 04/17/18 07:07 98.1 F 75 14 130/60 83 L 04/17/18 04:00 97.8 F 62 20 138/62 93 L 04/17/18 02:00 77 04/17/18 00:00 97.9 F 77 20 116/57 96 04/16/18 20:00 98.5 F 70 18 120/56 93 L 04/16/18 19:33 93 L 04/16/18 16:00 98.7 F 59 L 22 128/67 93 L 04/16/18 14:00 66 04/16/18 11:48 97.9 F 66 18 135/58 94 L Oxygen-Last 24 hours O2 Percentage 4 Liters = 36% Pain Assessment - Last Documented Pain Intensity [Right Anterior 8 /Posterior Thigh] Pain Intensity 8 [facility] Intake and Output: Intake & Output 04/14/18 04/15/18 04/16/18 04/17/18 11:59 11:59 11:59 11:59 Intake Total 6274 1560 7277 Output Total 800 1800 Balance 5474 1560 5477 Weight 172.365 kg 144.3 kg 144.3 kg Lab Results: Lab Results-Last 24 Hours 04/14/18 Range/Units 10:00 Smear Path Review Radiology Exams: Radiology Procedures Category Date Time Status ARTERIAL BILAT LOWER EXTREMITY [US] Urgent Exams 04/15/18 14:16 Completed ECHO W/2D AND DOPPLER [US] Routine Exams 04/16/18 10:44 Taken Multi-Disciplinary Progress Notes: Multi-Disciplinary Progress Notes 04/16/18 12:00 (created 04/16/18 12:53) Case Management Note by Amina Rodriguez DR. ROUNDED AND EVALUATED, DISCUSSED TREATMENT PLAN WITH PT AND PT'S MOTHER AT BEDSIDE. DISCUSSED FURTHER DIAGNOSTIC TESTING, ESTABLISHING HIMSELF WITH A PCP, AND PT F/U WITH [facility] ON DISCHARGE, PT LIVES IN [place]. PT VERBALIZED UNDERSTANDING TO ALL INFORMATION, ABLE TO REPEAT INFORMATION BACK, AND AGREES TO THIS PLAN. DENIES ADDNL NEEDS AT PRESENT. ALL QUESTIONS ANSWERED AT THIS TIME. WILL CONT TO FOLLOW FOR ALL DC NEEDS. Initialized on 04/16/18 12:53 - END OF NOTE Assessment/Plan (1) Cellulitis Current Visit: Yes Status: Acute Onset Date: ~04/14/18 Qualifiers: Site of cellulitis: extremity Site of cellulitis of extremity: lower extremity Laterality: right Qualified Code(s): L03.115 - Cellulitis of right lower limb Code(s): L03.90 - CELLULITIS, UNSPECIFIED (2) Elevated WBC count Current Visit: Yes Status: Acute Onset Date: ~04/14/18 Code(s): D72.829 - ELEVATED WHITE BLOOD CELL COUNT, UNSPECIFIED (3) Fever Current Visit: Yes Status: Acute Onset Date: ~04/14/18 Qualifiers: Fever type: unspecified Qualified Code(s): R50.9 - Fever, unspecified Code(s): R50.9 - FEVER, UNSPECIFIED (4) Morbidly obese Current Visit: Yes Status: Acute Onset Date: ~04/14/18 Code(s): E66.01 - MORBID (SEVERE) OBESITY DUE TO EXCESS CALORIES
[2018-04-17] MEDS: Zosyn 3.375GM/100 Ml D5W 3.375 GM/100 ML IVPB IV SCH ×2 (11:39→17:09)
[2018-04-17] MEDS: TYLENOL 325 MG PO PRN (17:09)
[2018-04-17] MEDS ORDERED: Lasix 40 MG/4 ML IV ONE (17:59)
[2018-04-18] MEDS: Zosyn 3.375GM/100 Ml D5W 3.375 GM/100 ML IVPB IV SCH ×3 (00:29→11:37)
[2018-04-18] MEDS: MORPHINE SULFATE 4 MG INJ IV PRN ×2 (00:39→13:19)
[2018-04-18] MEDS: Zofran 4 MG/2 ML VIAL IV PRN ×2 (00:42→13:19)
[2018-04-18] MEDS ORDERED: TROUGH DRUG LEVELS IJ ONE (05:30)
[2018-04-18] MEDS: VANCOCIN 1 GM VIAL*** 2 GM in Sodium Chloride 0.9% 500 ML 500 ML IV SCH (06:06)
[2018-04-18] MEDS: Sodium Chloride 0.9% 10 ML FLUSH Syringe IV SCH ×3 (06:18→22:00)
--- NOTE | 2018-04-18 07:57 | CONS ---
CONSULT DATE: 04/17/2018 BRIEF HISTORY: This is a 48 year-old male who was seen because of bilateral leg edema suspected to have congestive heart failure. The patient was primarily admitted because of worsening leg edema primarily on the right side. He stated that this has been a chronic problem but seems to have gotten worse over the last few days prior to this admission. He also complained of some tenderness in the same area. From the cardiac standpoint he has never had any cardiac-related issues particularly no history of myocardial infarction or heart failure. He denies any chest pains. No significant shortness of breath. His recent work up at this hospital showed some evidence of peripheral vascular disease involving the right leg. There is no evidence of deep venous thrombosis. CARDIAC RISK FACTORS: Negative for diabetes. No hypertension. He smoked cigars in the past. No known hyperlipidemia. CURRENT MEDICATIONS: Lovenox 40 mg subcu daily, Furosemide 40 mg a day, hydrochlorothiazide 12.5, lisinopril 5 mg a day, Zosyn, Vancomycin. REVIEW OF SYSTEMS: [employer]: There is no history of stroke or seizures. No visual disturbances. No chronic headache. No hearing difficulties. RESPIRATORY: He has been diagnosed to have some sleep apnea. GI: No history of nausea, no vomiting, no reflux, no diarrhea or constipation. : Negative for dysuria or hematuria. No flank pain. PERIPHERAL VASCULAR: No history of deep venous thrombosis. He has chronic leg swelling. or claudication. MUSCULOSKELETAL: No significant degenerative joint disorder. SKIN: He has cellulitis in the lower extremities. HEMATOLOGY: No history of blood dyscrasia or transfusion. ENDOCRINE: No history of thyroid disorder. PAST SURGICAL HISTORY: Includes surgery to the right hand. PHYSICAL EXAMINATION: The blood pressure is 124/50, heart rate 70, respirations about 20. GENERAL: The patient is a middle aged male who is obese, alert, who is not in any form of distress. He is currently chest pain free. HEENT: Unremarkable. NECK: No significant JVD. No carotid bruit. CHEST: The breath sounds are clear. No rhonchi or wheezing. CARDIAC: Heart tones are within normal. The rhythm is regular. There is no audible gallop. ABDOMEN: Obese with normal bowel sounds. EXTREMITIES: There is bilateral leg edema. The right leg is wrapped with significant edema on both lower extremities. LAB DATA AND DIAGNOSTIC TESTS: The EKG showed sinus rhythm, no significant ST displacement. The ProBNP is 1,150. The glomerular filtration rate is greater than 60. Potassium 3.7. Troponin I is less than 0.012. IMPRESSION: In essence the patient has: 1) Bilateral leg edema this appears to be more of a lymphedema which may be secondary to chronic venous insufficiency. There is definitely some relationship to his obese state. We are going to review his echocardiogram to assess left ventricular systolic function as his BNP was slightly elevated. The elevated BNP could be due to pulmonary hypertension or obstructive sleep apnea. 2) Morbid obesity. 3) Sleep apnea. 4) Chronic leg edema. Further recommendations will be made after we review his echocardiogram. Meanwhile continue with diuretics.
[2018-04-18] MEDS: ENOXAPARIN SODIUM SQ SCH (09:17)
[2018-04-18] MEDS: Zestril 5 MG PO SCH (09:18)
[2018-04-18] MEDS: Lasix 40 MG PO SCH (09:18)
--- NOTE | 2018-04-18 10:47 | CONS ---
CONSULT DATE: 04/18/2018 REASON FOR CONSULTATION: Nocturnal desaturation. HISTORY: Matteo Kirk is a 48 year-old obese male who has been hospitalized with right lower extremity swelling and is being treated for likely cellulitis. The patient had arterial Doppler performed that showed possible obstruction of arterial circulation although he has been a nonsmoker. Venous Doppler's were negative for deep venous thrombosis. The patient reports that he usually lives in [place]. 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 PAST MEDICAL HISTORY: The patient is not a known diabetic. He has had prior history of cellulitis of the left lower extremity. FAMILY HISTORY: He reportedly has family history of blood clots as his mother is on anticoagulation. His father had pacemaker placed. The patient otherwise denies any pulmonary problems. PAST SURGICAL HISTORY: No recent surgery. PERSONAL AND SOCIAL HISTORY: He occasionally smokes cigars. MEDICATIONS: The patient is not on any prescription medications. Medications are reviewed. ALLERGIES: NKDA. PHYSICAL EXAMINATION: This is a middle aged male who appears comfortable at rest. The patient had overnight pulse oximetry with significant desaturation. Review of systems is positive for loud snoring, lack of morning freshness and excessive daytime sleepiness. LABORATORY DATA AND TESTS: Cultures are negative. Vancomycin trough is 22.6. White blood cell count 27, hemoglobin 15.6, hematocrit 48, PLT 314,000. BNP 1150. Sodium 132, potassium 3.7, chloride 19, bicarb 13, glucose 150, BUN 10, creatinine 0.9. Arterial Doppler's and venous Doppler's were reviewed. Chest x-ray showed no acute infiltrate. ASSESSMENT: This is a 48 year old male with: 1) Body habitus highly strongly suggestive of underlying obstructive sleep apnea admitted with cellulitis of the lower legs. The patient is noted to have significant nocturnal desaturation which again appears to be secondary to underlying obstructive sleep apnea. The patient will benefit from nocturnal polysomnography followed by noninvasive ventilation. Given the patient's possible cardiac involvement at this point I recommend that this be an in lab study and may be performed as a split night if the patient meets criteria. 2) Cellulitis of the leg being treated per primary care. 3) Likely peripheral vascular disease work up in progress by cardiology. 4) Obesity. RECOMMENDATIONS: I have advised the patient to have sleep study followed by CPAP therapy as qualified. He will benefit from weight loss, additional work up of deep venous thrombosis in progress per primary care. I will continue to follow as needed and upon discharge.
[2018-04-18] MEDS ORDERED: VANCOCIN 1 GM VIAL*** 1.5 GM in Sodium Chloride 0.9% 500 ML 500 ML IV SCH (14:00)
--- NOTE | 2018-04-18 14:33 | ECHO ---
Transthoracic echocardiographic examination and color Doppler was done on 04/16/2018. INDICATION: Edema, shortness of breath. IMPRESSION: 1) THE LEFT VENTRICLE WAS ONLY PARTIALLY VISUALIZED BUT DOES NOT DEMONSTRATE ANY OBVIOUS WALL MOTION ABNORMALITY. ESTIMATED GLOBAL LEFT VENTRICULAR EJECTION FRACTION OF AROUND 50-60%. 2) THERE IS MILD LEFT VENTRICULAR HYPERTROPHY. 3) THE MITRAL VALVE WAS PARTIALLY SEEN AND THIS APPEARS TO OPEN ADEQUATELY. 4) THE AORTIC VALVE WAS NOT WELL VISUALIZED. 5) THE RIGHT SIDE CHAMBERS APPEAR TO BE MILDLY DILATED. 6) THERE TRACE TRICUSPID REGURGITATION WITH RIGHT VENTRICULAR SYSTOLIC PRESSURE OF 28 MM OF MERCURY.
[2018-04-18] MEDS: Levofloxacin 500 MG Tablet PO SCH (14:37)
[2018-04-18] MEDS: TYLENOL 325 MG PO PRN (17:47)
--- NOTE | 2018-04-18 21:28 | PCM.NOTE ---
Date and Time: 04/18/182122 Subjective Assessment: doing better, cardiology and pulmonary consult appreciated - Review of Systems Constitutional: No Fever, No Chills Eyes: No Symptoms Ears, Nose, & Throat: No Symptoms Respiratory: No Cough, No Short Of Breath Cardiac: No Chest Pain, No Edema, No Syncope Abdominal/Gastrointestinal: No Abdominal Pain, No Nausea, No Vomiting, No Diarrhea Genitourinary Symptoms: No Dysuria Musculoskeletal: No Back Pain, No Neck Pain Skin: No Rash Neurological: No Dizziness, No Focal Weakness, No Sensory Changes Psychological: No Symptoms Endocrine: No Symptoms Hematologic/Lymphatic: No Symptoms Immunological/Allergic: No Symptoms Objective Exam General Appearance: no apparent distress, alert Neurologic Exam: alert, oriented x 3, cooperative, normal mood/affect, nml cerebellar function, sensation nml, No motor deficits Skin Exam: normal color, warm, dry Eye Exam: PERRL, EOMI, eyes nml inspection Ears, Nose, Throat Exam: normal ENT inspection, pharynx normal, moist mucous membranes Neck Exam: normal inspection, non-tender, supple, full range of motion Respiratory Exam: normal breath sounds, lungs clear, No respiratory distress Cardiovascular Exam: regular rate/rhythm, normal heart sounds Gastrointestinal/Abdomen Exam: soft, No tenderness, No mass Extremity Exam: normal inspection, normal range of motion Back Exam: normal inspection, normal range of motion, No CVA tenderness, No vertebral tenderness Male Genitalia Exam: deferred Rectal Exam: deferred OBJECTIVE DATA Vital Signs: Vital Signs - 24 hr Temp Pulse Resp BP Pulse Ox 04/18/18 19:42 98.1 F 100 H 20 115/56 93 L 04/18/18 16:00 98.1 F 94 H 22 132/70 96 04/18/18 12:00 98.1 F 91 H 22 127/60 91 L 04/18/18 11:50 95 04/18/18 07:18 97.6 F 79 22 115/68 96 04/18/18 04:00 97.6 F 79 20 123/63 96 04/17/18 23:57 97.9 F 73 18 113/57 92 L Oxygen-Last 24 hours O2 Percentage 4 Liters = 36% O2 Percentage 3 Liters = 32% O2 Percentage 3 Liters = 32% Pain Assessment - Last Documented Pain Intensity [Right Anterior 8 /Posterior Thigh] Pain Intensity 5 Pain Scale Used 0-10 Pain Scale Intake and Output: Intake & Output 04/16/18 04/17/18 04/18/18 04/19/18 11:59 11:59 11:59 11:59 Intake Total 1560 7277 4083 1600 Output Total 1800 2000 900 Balance 1560 5477 2083 700 Weight 144.3 kg Lab Results: Lab Results-Last 24 Hours 04/18/18 Range/Units 05:43 Vancomycin Trough 22.68 H (10-20) ug/mL Multi-Disciplinary Progress Notes: Multi-Disciplinary Progress Notes 04/18/18 13:36 Case Management Note by Amian Rodriguez REFERRAL TO [facility] PER PT'S PREFERENCE OF PROVIDER FOR HOME OXYGEN EQUIPMENT. FAXED TO [phone]. Initialized on 04/18/18 13:36 - END OF NOTE 04/18/18 13:30 (created 04/18/18 13:34) Case Management Note by Amina Rodriguez CALL TO DR. LLOYD, ORDERS RECEIVED TO CANCEL DISCHARGE TODAY. DC IV ABX, CHANGE TO LEVAQUIN 500 PO DAILY. ORDERS TO DC TOMORROW AFTER DRESSING CHANGE WITH [facility] MORROW P.T. TO FOLLOW FOR ALL DRESSING CHANGES OUTPATIENT. Initialized on 04/18/18 13:34 - END OF NOTE 04/18/18 12:15 (created 04/18/18 14:27) Case Management Note by Amina Rodriguez DR. ROUNDED AND EVALUATED, DISCUSSED DISCHARGE WITH PT AND PT'S MOTHER. PLAN FOR DISCHARGE ONCE DRESSING CAN BE ESTABLISHED THAT IS LEAK PROOF. STILL HAVING COPIOUS DRAINAGE FROM RLE. CONTINUE LASIX PO. ALSO, DISCUSSED HAVING SLEEP STUDY DONE OUTPATIENT ON DISCHARGE - WILL BE SET UP FOR . REQUESTS REFERRAL FOR [facility] TO PROVIDE HOME OXYGEN EQUIP. DENIES ADDNL NEEDS AT PRESENT. WILL FOLLOW. Initialized on 04/18/18 14:27 - END OF NOTE 04/18/18 07:43 Pharmacy Note by Urbano Hu Vancomycin trough high at 22.68. Will decrease to 1.5gm dose and re-check level. Initialized on 04/18/18 07:43 - END OF NOTE Assessment/Plan (1) Hypoxia, sleep related Current Visit: Yes Status: Acute Code(s): G47.34 - IDIO SLEEP RELATED NONOBSTRUCTIVE ALVEOLAR HYPOVENTILATION (2) Cellulitis Current Visit: Yes Status: Acute Onset Date: ~04/14/18 Qualifiers: Site of cellulitis: extremity Site of cellulitis of extremity: lower extremity Laterality: right Qualified Code(s): L03.115 - Cellulitis of right lower limb Code(s): L03.90 - CELLULITIS, UNSPECIFIED (3) Elevated WBC count Current Visit: Yes Status: Acute Onset Date: ~04/14/18 Code(s): D72.829 - ELEVATED WHITE BLOOD CELL COUNT, UNSPECIFIED (4) Fever Current Visit: Yes Status: Acute Onset Date: ~04/14/18 Qualifiers: Fever type: unspecified Qualified Code(s): R50.9 - Fever, unspecified Code(s): R50.9 - FEVER, UNSPECIFIED (5) Morbidly obese Current Visit: Yes Status: Acute Onset Date: ~04/14/18 Code(s): E66.01 - MORBID (SEVERE) OBESITY DUE TO EXCESS CALORIES
[2018-04-19] MEDS ORDERED: TROUGH DRUG LEVELS IJ ONE (05:30)
[2018-04-19] MEDS: Sodium Chloride 0.9% 10 ML FLUSH Syringe IV SCH (06:09)
[2018-04-19] MEDS: TYLENOL 325 MG PO PRN (06:19)
[2018-04-19 07:33] VITALS: O2SAT 94
[2018-04-19] MEDS: Zestril 5 MG PO SCH (08:32)
[2018-04-19] MEDS: ENOXAPARIN SODIUM SQ SCH (08:32)
[2018-04-19] MEDS: Levofloxacin 500 MG Tablet PO SCH (08:32)
[2018-04-19] MEDS: Lasix 40 MG PO SCH (08:32)
[2018-04-19 11:33] VITALS: BP 120/68; PULSE 87
== END 2018-04-19 12:00 | disposition home or self-care (01) | DRG 603 ==
LOC: ED 09:33 → MED SURG 12:32
PROVIDERS: ADMIT General Practice; ATTEND General Practice
DX: L03.115 Cellulitis of right lower limb (principal); D72.829 Elevated white blood cell count, unspecified; R50.9 Fever, unspecified; E66.01 Morbid (severe) obesity due to excess calories; G47.34 Idiopathic sleep related nonobstructive alveolar hypoventilation; M79.604 Pain in right leg; I73.9 Peripheral vascular disease, unspecified; G47.30 Sleep apnea, unspecified; Z79.899 Other long term (current) drug therapy; I87.2 Venous insufficiency (chronic) (peripheral)
CPT/HCPCS: 36000; 36415; 71045; 80048; 80053; 80202; 81002; 83036; 83605; 83880; 84484; 85025; 85027; 85610; 85730; 87040; 87070; 93005; 93306; 93925; 93971; 94760; 94762; 96360; 96361; 96365; 96366; 96374; 96375; 99285; J1650; J1940; J2270; J2405; J2543; J3370; A9270-GY